=== PATIENT | male | born 1960 | race Caucasian/White ===

== ENCOUNTER 2018-01-06 00:03 | Emergency (ER) | payer SELFPAY ==
[~2018-01-06] VITALS: Ht 172.7 cm; Wt 74.8 kg
[2018-01-06 00:05] VITALS: BP 127/70
--- NOTE | 2018-01-06 00:05 | NUR ---
Amb to chair E with son.
--- NOTE | 2018-01-06 00:18 | NUR ---
Moved pt to Bed 3.
--- NOTE | 2018-01-06 00:20 | NUR ---
Sling to right arm.
--- NOTE | 2018-01-06 00:22 | NUR ---
PT STATED HE WAS WEARING NEW SHOES AND STUBBED HIS TOE, FELL FORWARD INTO THE TABLE. PT IS A/O X 4. PT HAD NO LOC. SKIN INTACT. SON AT BEDSIDE. ER MD MADE AWARE OF STATUS. VSS. BED RAILS UP X 2. SON AT BEDSIDE.
[2018-01-06] MEDS ORDERED: KETOROLAC 30 MG/ML VIAL IVP ONE (00:25)
--- NOTE | 2018-01-06 00:31 | NUR ---
X-Ray at bedside.
--- NOTE | 2018-01-06 00:58 | NUR ---
Dr. Headley evaluating patient at bedside.
[2018-01-06] MEDS ORDERED: MIDAZOLAM 2 MG/2 ML VIAL IVP ONE (01:10)
[2018-01-06] MEDS ORDERED: fentaNYL 0.05 MG/ML VIAL IVP ONE (01:10)
--- NOTE | 2018-01-06 01:35 | NUR ---
PROCEDURE/SELF REDUCTION TECHNIQUE WAS PERFORMED WITH MD, EMT AND RN AT BEDSIDE. PT TOLERATED WELL. VSS.
--- NOTE | 2018-01-06 01:35 | NUR ---
DR. MORALEZ AT BEDSIDE FOR PROCEDURE
--- NOTE | 2018-01-06 01:43 | NUR ---
X-Ray at bedside.
[2018-01-06 02:20] VITALS: BP 120/69
--- NOTE | 2018-01-06 02:20 | NUR ---
Patient discharged with v/s stable. Written and verbal after care instructions given and explained. Patient alert, oriented and verbalized understanding of instructions. Ambulatory with steady gait. All questions addressed prior to discharge. ID band removed. Patient advised to follow up with PMD. Rx of Naproxen and Peebles given. Patient educated on indication of medication including possible reaction and side effects. Opportunity to ask questions provided and answered.
== END 2018-01-06 02:20 | disposition home or self-care (01) ==
LOC: MED 00:03
DX: S43.004A Unspecified dislocation of right shoulder joint, initial encounter (principal); W01.190A Fall on same level from slipping, tripping and stumbling with subsequent striking against furniture, initial encounter; Y93.01 Activity, walking, marching and hiking; Y92.89 Other specified places as the place of occurrence of the external cause; Y99.8 Other external cause status
CPT/HCPCS: 23650; 73020; 73030; 96374; 96375; 99283; J1885; J2250; J3010; Q0092